=== PATIENT | female | born 1980 | race Hispanic/Latino ===

== ENCOUNTER 2017-10-24 11:11 | Outpatient (CLI) | payer MEDICAID ==
[2017-10-24 12:14] LABS: #Eosinphils 0.3 thou/uL (0.0-0.7); #Lymphocytes 1.8 thou/uL (1.20-3.40); #Monocytes 0.6 thou/uL (0.11-0.59); #Neutrophils 6.6 thou/uL (1.40-6.50); %Basophils 0.5 % (0.0-1.0); %Eosinophils 2.9 % (0.0-10.0); %Lymphocytes 19.1 % (21.0-51.0); %Monocytes 6.5 % (0.0-10.0); Hemoglobin 13.4 g/dL (12.0-16.0); Mean Corpuscular HGB CONC 33.4 g/dL (32.0-36.0); Mean Corpuscular Hemoglobin 29.5 pg (27.0-31.0); Mean Corpuscular Volume 88.3 fL (78.0-98.0); Mean Platelet Volume 6.2 fL (7.4-10.4); Platelet Count 280 thou/uL (130-400); RBC Distribution Width 11.9 % (11.5-14.5); Red Blood Cell (RBC) Count 4.53 mill/uL (4.20-5.40); White Blood Cell (WBC) Count 9.3 thou/uL (4.8-10.8)
[2017-10-24 12:31] LABS: ALT (SGPT) 19 U/L (8-55); AST (SGOT) 16 U/L (5-34); Albumin 3.8 g/dL (3.5-5.0); Alkaline Phosphatase 88 U/L (40-150); Anion Gap 10 mmol/L (10-20); BUN (Urea Nitrogen) 10 mg/dL (7.0-18.7); Bilirubin, Total 0.5 mg/dL (0.2-1.2); Calc. Creatinine Clearance 0 mL/min (70-130); Calcium 9.1 mg/dL (7.8-10.44); Carbon Dioxide 28 mmol/L (22-29); Chloride 104 mmol/L (98-107); Estimated GFR-MDRD Greater than 90; Globulin 3.6 g/dL (2.4-3.5); Glucose 79 mg/dL (70-105); Potassium 3.8 mmol/L (3.5-5.1); Protein, Total 7.4 g/dL (6.0-8.3); Sodium 138 mmol/L (136-145)
== END 2017-10-24 11:12 | disposition home or self-care (01) ==
LOC: LABBT 11:11
PROVIDERS: ATTEND Surgery
DX: Z01.812 Encounter for preprocedural laboratory examination (principal); K80.20 Calculus of gallbladder without cholecystitis without obstruction; K42.9 Umbilical hernia without obstruction or gangrene
CPT/HCPCS: 80053; 85025

== ENCOUNTER 2017-10-25 07:45 | Observation (INO) | payer MEDICAID ==
[2017-10-24 11:33] VITALS: BMI 55.0
--- NOTE | 2017-10-25 10:02 | ULT ---
BILATERAL LOWER EXTREMITY VENOUS DOPPLER ULTRASOUND: Date: 10-25-17 Comparison: None. History: Pre-surgical patient, evaluate for DVT. Technique: Multiplanar grayscale sonographic imaging of the venous structures of the bilateral lower extremities obtained with color flow and spectral analysis. FINDINGS: Bilateral common femoral veins, greater saphenous veins, profunda femoral veins, femoral veins, popli teal veins, and posterior tibial veins are patent. There is normal blood flow, augmentation, and comp ression within the deep venous system bilaterally. No evidence for DVT on either side. IMPRESSION: No evidence for deep venous thrombosis of either lower extremity. POS: [facility]
[2017-10-25] MEDS ORDERED: Fentanyl 250 MCG/5 ML VIAL ONE (11:40)
[2017-10-25] MEDS ORDERED: Lidocaine 2% Jelly 5 ML TUBE ONE (11:40)
[2017-10-25] MEDS ORDERED: Midazolam HCl 2 mg/2 ml Vial ONE ×2 (11:40→11:44)
[2017-10-25] MEDS ORDERED: CEFAZOLIN/Water 2 GM/20 ML SYRINGE ONE (11:44)
[2017-10-25] MEDS ORDERED: Bupivacaine 0.25% HCL 30 ML VIAL ONE (11:49)
[2017-10-25] MEDS ORDERED: Bupivacaine/Epinephrine 0.25% 30 ML VIAL ONE (11:50)
[2017-10-25] MEDS ORDERED: Lidocaine 1% PF 5 ML VIAL ONE (13:22)
[2017-10-25] MEDS ORDERED: PHENYLEPHRINE-NS 100 MCG/ML 10 ML SYRINGE ONE (13:22)
[2017-10-25] MEDS ORDERED: Ondansetron HCl/PF 4 MG/2 ML Vial ONE (13:22)
[2017-10-25] MEDS ORDERED: PROPOFOL 200 MG/20 ML VIAL ONE (13:22)
[2017-10-25] MEDS ORDERED: Glycopyrrolate 0.2 MG/ML 5 ML SYRINGE ONE (13:22)
[2017-10-25] MEDS ORDERED: Succinylcholine Chloride 20 MG/ML 10 ml SYRINGE FS ONE (13:22)
[2017-10-25] MEDS ORDERED: Dexamethasone 20 MG/5 ML VIAL ONE (13:22)
[2017-10-25] MEDS ORDERED: Fentanyl 100 MCG/2 ML VIAL ONE ×2 (14:05→14:56)
[2017-10-25] MEDS ORDERED: Morphine 4 MG/ML VIAL ONE (16:13)
[2017-10-25] MEDS ORDERED: HYDROcodone/Acetaminophen 5/325 mg Tablet ONE ×2 (17:17→17:18)
[2017-10-25] MEDS ORDERED: Ketorolac Tromethamine 30 MG/ML VIAL IVP PRN (18:16)
[2017-10-25] MEDS ORDERED: traMADol HCl 50 MG TAB PO PRN ×2 (18:17→18:18)
[2017-10-25] MEDS: Acetaminophen 1,000 MG in Premix Bag 1 BAG IVPB PRN (19:33)
[2017-10-26] MEDS: Acetaminophen 1,000 MG in Premix Bag 1 BAG IVPB PRN (07:01)
[2017-10-26] MEDS ORDERED: HYDROcodone/Acetaminophen 5/325 mg Tablet PO PRN ×2 (10:24)
[2017-10-26 16:14] VITALS: BP 147/82; TEMP 97.8
--- NOTE | 2017-10-27 10:19 | PDOC.OP ---
Operative Note - Operative Note Operative Note: PROCEDURE: Laparoscopic cholecystectomy and open repair of umbilical hernia with mesh SURGEON: Krystyna Ross M.D. DATE OF PROCEDURE: 10/25/2017 PREOPERATIVE DIAGNOSIS: Cholelithiasis and cholecystitis, umbilical hernia POSTOPERATIVE DIAGNOSIS: Cholelithiasis and cholecystitis, umbilical hernia HISTORY: Patient with newly diagnosed umbilical hernia and long-standing postprandial epigastric and right upper quadrant pain due to recently diagnosed gallstones. Recommendation was made to proceed with laparoscopic cholecystectomy , with umbilical hernia repair under the same anesthesia. FINDINGS: White walled chronically inflamed gallbladder with no evidence of acute infection. 2.5 cm umbilical hernia defect repaired with 8 cm preperitoneal ventralex mesh. PROCEDURE IN DETAIL: After informed consent was obtained and appropriate preoperative antibiotics were administered, the patient was taken to the operating room and placed in the supine position and general endotracheal anesthesia was administered. The stomach was decompressed with an OG tube and the abdomen was prepped and draped in standard sterile fashion. Local anesthesia was infused to the skin and subcutaneous tissues at the umbilical level. A periumbilical skin incision was made and dissection carried down to the umbilical hernia sac which was dissected free of the umbilicus and traced down to the fascia. The hernia sac was empty and was opened and a 12 mm trocar placed into the abdominal cavity. The hernia sac was secured around the trocar and the skin incision on snugged up around the trocar with a towel clip and carbon dioxide gas insufflated into the intra-abdominal cavity without difficulty. Opening pressure was less than 5 and carbon dioxide gas easily insufflated to an intra-abdominal pressure of 15, which the patient tolerated well. The abdominal cavity was carefully examined. There was no evidence of trocar injury. Local anesthesia was infused to the skin and subcutaneous tissues at the epigastric, right upper quadrant, and right lateral abdominal sites and 5 mm trocars were placed under direct vision of the laparoscope. The fundus of the gallbladder was grasped and retracted superiorly. The infundibulum was grasped and retracted laterally. The serosa was stripped inferiorly at the level of the neck of the gallbladder exposing the small cystic duct and the cystic artery, both of which were traced clearly to their insertion in the gallbladder. Critical view of safety was obtained and the cystic duct and artery were clipped and divided between clips. The gallbladder was then dissected free of the gallbladder bed using hook electrocautery. At no time was the gallbladder entered nor was any bile spilled. Prior to complete removal of the gallbladder from the gallbladder bed, the area of the cystic duct and artery stumps was examined. The clips were in good position completely across these structures and there was no bleeding and no leakage of bile. The gallbladder was then placed into an EndoCatch bag and drawn out through the umbilical incision. The umbilical trocar was replaced and the operative site examined and hemostasis again verified. The umbilical trocar was then removed and attention turned to repair of the umbilical hernia. The hernia sac was excised at the level of the fascia and the peritoneum closed with a 3-0 Monocryl suture. A preperitoneal space was created using blunt dissection and an 8 cm ventral ex mesh placed into the preperitoneal space and flattened against the anterior fascia. The fascial defect was then closed with braided permanent suture including the central strap into the fascial closure. The straps were then cut flush with the fascia. The camera was moved to the epigastric position and the repair examined. The mesh was in good position completely covered by peritoneum and expanded appropriately, completely covering the fascial defect. The right upper quadrant and right lateral abdominal trocars were removed and hemostasis verified. Carbon dioxide gas was allowed to desufflate through the epigastric trocar which was then removed. The skin incisions were closed with 4-0 subcuticular Monocryl sutures and Dermabond dressings were placed. The patient was extubated and taken to the recovery room in good condition. There were no complications. ESTIMATED BLOOD LOSS: Minimal. SPECIMEN : Gallbladder and contents. Umbilical hernia sac was discarded.
== END 2017-10-26 17:25 | disposition home or self-care (01) ==
LOC: SDC 07:45 → SURG A 18:58
PROVIDERS: ADMIT Surgery; ATTEND Surgery
PROC: 0FT44ZZ Resection of Gallbladder, Percutaneous Endoscopic Approach (ICD-10-PCS; principal; 2017-10-25)
DX: K80.10 Calculus of gallbladder with chronic cholecystitis without obstruction (principal); K42.9 Umbilical hernia without obstruction or gangrene; E66.9 Obesity, unspecified; I80.9 Phlebitis and thrombophlebitis of unspecified site; Z88.1 Allergy status to other antibiotic agents; Z79.899 Other long term (current) drug therapy; Z88.8 Allergy status to other drugs, medicaments and biological substances; Z68.43 Body mass index [BMI] 50.0-59.9, adult
CPT/HCPCS: 80053; 85025; 88304; 93970; 96374; 96375; 96376; C1781; G0378; J0131; J1100; J2001; J2250; J2270; J2405; J2704; J3010; S0020

== ENCOUNTER 2018-01-17 11:20 | Emergency (ER) | payer MEDICAID, OTHER ==
[2018-01-17] MEDS ORDERED: Ibuprofen 200 MG TAB ONE (13:31)
== END 2018-01-17 13:37 | disposition home or self-care (01) ==
LOC: ERS 11:20
DX: L03.115 Cellulitis of right lower limb (principal); I83.891 Varicose veins of right lower extremity with other complications
CPT/HCPCS: 99283

== ENCOUNTER 2019-06-18 09:39 | Emergency (ER) | payer OTHER | END 2019-06-18 10:45 | disposition home or self-care (01) | LOC: ERS 09:39 | DX: O99.413 Diseases of the circulatory system complicating pregnancy, third trimester (principal); I83.891 Varicose veins of right lower extremity with other complications; L03.115 Cellulitis of right lower limb; O99.713 Diseases of the skin and subcutaneous tissue complicating pregnancy, third trimester; Z87.898 Personal history of other specified conditions; Z3A.32 32 weeks gestation of pregnancy | CPT/HCPCS: 99283 ==

== ENCOUNTER 2021-01-15 19:00 | Outpatient (CLI) | payer OTHER | END 2021-01-15 19:01 | disposition home or self-care (01) | LOC: SLEEPLAB 19:00 | PROVIDERS: ATTEND Family Medicine | DX: G47.33 Obstructive sleep apnea (adult) (pediatric) (principal); G47.61 Periodic limb movement disorder; R53.83 Other fatigue; E66.9 Obesity, unspecified; R06.83 Snoring; I10 Essential (primary) hypertension | CPT/HCPCS: 95810 ==

== ENCOUNTER 2021-01-22 15:04 | Outpatient (CLI) | payer OTHER | END 2021-01-22 15:05 | disposition home or self-care (01) | LOC: DTY/OP 15:04 | PROVIDERS: ATTEND Surgery | DX: E66.01 Morbid (severe) obesity due to excess calories (principal) | CPT/HCPCS: 97802 ==

== ENCOUNTER 2021-10-02 06:56 | Outpatient (CLI) | payer OTHER ==
[2021-10-02 08:57] LABS: #Basophils 0.1 10x3/uL (0.0-0.2); #Eosinphils 0.3 10x3/uL (0.0-0.5); #Monocytes 0.6 10x3/uL (0.0-1.1); #Neutrophils 6.5 10x3/uL (1.5-8.4); %Basophils 0.5 % (0.0-2.0); %Eosinophils 2.8 % (0.0-6.0); %Lymphocytes 19.8 % (18.0-47.0); %Neutrophils 70.6 % (40.0-75.0); Mean Corpuscular HGB CONC 32.3 g/dL (32.0-36.0); Mean Corpuscular Volume 89.8 fl (81.6-98.3); Mean Platelet Volume 9.2 fl (7.4-10.4); Platelet Count 332 10x3/uL (150-450); RBC Distribution Width 13.3 % (11.5-14.5); Red Blood Cell (RBC) Count 4.49 10x6/uL (3.90-5.03); White Blood Cell (WBC) Count 9.3 10x3/uL (3.5-10.5)
[2021-10-02 09:28] LABS: BHCG - Serum Negative (NEGATIVE); Pregs Control Background? CLEAR/WHITE (CLR/WHITE); Pregs Control Bar Appear? YES (CONTROL BAR)
[2021-10-02 09:37] LABS: ALT (SGPT) 27 U/L (8-55); AST (SGOT) 24 U/L (5-34); Albumin 3.9 g/dL (3.5-5.0); Alkaline Phosphatase 74 U/L (40-110); Anion Gap 12 mmol/L (10-20); BUN (Urea Nitrogen) 12 mg/dL (7.0-18.7); Bilirubin, Total 0.4 mg/dL (0.2-1.2); Calc. Creatinine Clearance 0 mL/min (70-130); Carbon Dioxide 26 mmol/L (22-29); Chloride 106 mmol/L (98-107); Globulin 3.4 g/dL (2.4-3.5); Glucose 80 mg/dL (70-105); Potassium 4.1 mmol/L (3.5-5.1); Protein, Total 7.3 g/dL (6.0-8.3); Sodium 140 mmol/L (136-145)
[2021-10-02 14:16] LABS: Hemoglobin A1c 5.3 % (4.0-6.0)
== END 2021-10-02 06:57 | disposition home or self-care (01) ==
LOC: LABBT 06:56
PROVIDERS: ATTEND Surgery
DX: Z01.812 Encounter for preprocedural laboratory examination (principal); E66.01 Morbid (severe) obesity due to excess calories; Z20.822 Contact with and (suspected) exposure to COVID-19
CPT/HCPCS: 80053; 83036; 84703; 85025; U0003; U0005

== ENCOUNTER 2021-10-02 07:15 | Inpatient (IN) | payer OTHER ==
[2021-10-02 12:29] VITALS: BMI 54.9
[2021-10-06] MEDS ORDERED: fentaNYL Citrate/PF 100 MCG/2 ML SYRINGE ONE ×2 (07:19→09:59)
[2021-10-06] MEDS ORDERED: HYDROmorphone 0.5 MG/0.5 ML SYRINGE ONE (07:19)
[2021-10-06] MEDS ORDERED: SUGAMMADEX SODIUM 200 MG/2 ML VIAL ONE (07:19)
[2021-10-06] MEDS ORDERED: Bupivacaine 0.25% HCL 30 ML VIAL ONE (07:32)
[2021-10-06] MEDS ORDERED: Lidocaine 1% w/Epinephrine 1:100K 20 ML VIAL ONE (07:32)
[2021-10-06] MEDS ORDERED: Sodium Chloride 0.9% 100 ML ONE (07:36)
[2021-10-06] MEDS ORDERED: CEFAZOLIN 2 GM VIAL ONE (07:36)
[2021-10-06] MEDS ORDERED: Heparin 5,000 UNITS/ML VIAL ONE (07:36)
[2021-10-06] MEDS ORDERED: PROPOFOL 200 MG/20 ML VIAL ONE (07:51)
[2021-10-06] MEDS ORDERED: Rocuronium Bromide 10 MG/ML (10ML VIAL) ONE (07:51)
[2021-10-06] MEDS ORDERED: Dexamethasone 20 MG/5 ML VIAL ONE (07:51)
[2021-10-06] MEDS ORDERED: Ondansetron PF 4 MG/2 ML Vial ONE (07:51)
[2021-10-06] MEDS ORDERED: Ketorolac Tromethamine 30 MG/ML VIAL ONE (07:51)
[2021-10-06] MEDS ORDERED: Lidocaine 1% PF 5 ML VIAL ONE (07:51)
[2021-10-06] MEDS ORDERED: Glycopyrrolate 0.2 MG/ML 5 ML SYRINGE ONE (07:51)
[2021-10-06] MEDS ORDERED: Promethazine HCl 25 MG/ML VIAL IM PRN ×2 (08:44→09:31)
[2021-10-06] MEDS ORDERED: HYDROmorphone 2 MG/ML VIAL SLOW IVP PRN (08:44)
[2021-10-06] MEDS ORDERED: Promethazine HCl 25 MG/ML VIAL IVPB PRN (08:44)
[2021-10-06] MEDS ORDERED: Meperidine HCl/PF 25 MG/ML VIAL SLOW IVP PRN (08:44)
[2021-10-06] MEDS ORDERED: Ondansetron HCl/PF 4 MG/2 ML Vial IVP PRN (08:44)
[2021-10-06] MEDS ORDERED: Dextrose 5% in Water 1,000 ML IV PRN (09:31)
[2021-10-06] MEDS ORDERED: Morphine 4 MG/ML VIAL SLOW IVP PRN (09:31)
[2021-10-06] MEDS ORDERED: Ondansetron PF 4 MG/2 ML Vial IVP PRN (09:31)
[2021-10-06] MEDS ORDERED: Hydrocodone-Acetamin 15 ML UDCUP PO PRN (09:31)
[2021-10-06] MEDS ORDERED: diphenhydrAMINE 50 MG/ML VIAL IVP PRN (09:31)
[2021-10-06] MEDS ORDERED: hydrALAZINE 20 MG/ML VIAL SLOW IVP PRN ×2 (09:31→09:52)
[2021-10-06] MEDS ORDERED: Dextrose 50% Abboject 50 ML SYRINGE SLOW IVP PRN (09:31)
[2021-10-06] MEDS ORDERED: Morphine 2 MG/ML VIAL SLOW IVP PRN (09:31)
[2021-10-06] MEDS ORDERED: ceFAZolin 2 GM/Dextrose 50 ML 2 GM in Premix Bag 1 BAG IVPB SCH (09:45)
[2021-10-06] MEDS ORDERED: Labetalol HCl 100 MG/20 ML VIAL SLOW IVP PRN (09:52)
[2021-10-06] MEDS ORDERED: hydrALAZINE 20 MG/ML VIAL ONE (09:56)
[2021-10-06] MEDS ORDERED: Promethazine HCl 25 MG/ML VIAL ONE (10:25)
[2021-10-06] MEDS: D5 1/2 NS w/20 mEq KCL 1,000 ML IV SCH ×2 (11:35→20:47)
[2021-10-06] MEDS: CEFAZOLIN 2 GM in Sodium Chloride 0.9% 100 ML IVPB SCH ×2 (13:35→20:46)
[2021-10-06] MEDS: Ketorolac Tromethamine 30 MG/ML VIAL IVP SCH ×2 (13:35→18:30)
[2021-10-07] MEDS: Ketorolac Tromethamine 30 MG/ML VIAL IVP SCH ×3 (00:02→12:33)
[2021-10-07] MEDS: D5 1/2 NS w/20 mEq KCL 1,000 ML IV SCH ×2 (05:54→08:02)
[2021-10-07 06:07] LABS: Anion Gap 11 mmol/L (10-20); BUN (Urea Nitrogen) 6 mg/dL (7.0-18.7); Calc. Creatinine Clearance 284 mL/min (70-130); Calcium 8.5 mg/dL (7.8-10.44); Carbon Dioxide 26 mmol/L (22-29); Chloride 104 mmol/L (98-107); Glucose 95 mg/dL (70-105); Potassium 3.5 mmol/L (3.5-5.1); Sodium 137 mmol/L (136-145)
[2021-10-07 06:19] LABS: #Lymphocytes 1.8 thou/uL (1.20-3.40); #Monocytes 0.9 thou/uL (0.11-0.59); #Neutrophils 10.7 thou/uL (1.40-6.50); %Basophils 0.1 % (0.0-1.0); %Eosinophils 0.2 % (0.0-10.0); %Lymphocytes 13.6 % (21.0-51.0); %Monocytes 6.5 % (0.0-10.0); %Neutrophils 79.6 % (42.0-75.0); Hemoglobin 12.5 g/dL (12.0-16.0); Mean Corpuscular HGB CONC 33.1 g/dL (32.0-36.0); Mean Corpuscular Hemoglobin 29.7 pg (27.0-31.0); Mean Corpuscular Volume 89.7 fL (78.0-98.0); Mean Platelet Volume 5.9 fL (7.4-10.4); Platelet Count 356 thou/uL (130-400); RBC Distribution Width 12.6 % (11.5-14.5); White Blood Cell (WBC) Count 13.4 thou/uL (4.8-10.8)
[2021-10-07] MEDS ORDERED: Enoxaparin Sodium 40 MG/0.4 ML SYRINGE SC SCH (09:00)
[2021-10-07] MEDS ORDERED: Pantoprazole 40 MG VIAL IVP SCH (09:00)
[2021-10-07 16:35] VITALS: BP 155/86; TEMP 98
== END 2021-10-07 17:20 | disposition home or self-care (01) | DRG 621 ==
LOC: SURG A 10-06 07:00
PROVIDERS: ADMIT Surgery; ATTEND Surgery
PROC: 0DB64Z3 Excision of Stomach, Percutaneous Endoscopic Approach, Vertical (ICD-10-PCS; principal; 2021-10-06)
PROC: 8E0W3CZ Robotic Assisted Procedure of Trunk Region, Percutaneous Approach (ICD-10-PCS; 2021-10-06)
DX: E66.01 Morbid (severe) obesity due to excess calories (principal); Z20.822 Contact with and (suspected) exposure to COVID-19; I10 Essential (primary) hypertension; J30.2 Other seasonal allergic rhinitis; Z68.43 Body mass index [BMI] 50.0-59.9, adult; Z88.8 Allergy status to other drugs, medicaments and biological substances; Z79.899 Other long term (current) drug therapy
CPT/HCPCS: 36415; 80048; 85025; 88307; C9113; J0360; J1100; J1170; J1644; J1650; J1885; J2270; J2405; J2550; J2704; J3480; J3490; S0020

== ENCOUNTER 2021-10-12 11:22 | Day surgery (SDC) | payer OTHER ==
[2021-10-12] MEDS ORDERED: Ondansetron PF 4 MG/2 ML Vial IVP PRN (11:36)
[2021-10-12] MEDS ORDERED: Sodium Chloride 0.9% 1,000 ML IV SCH (11:45)
[2021-10-12] MEDS ORDERED: Multivitamins, Adult 10 ML, Thiamine HCl 100 MG in Sodium Chloride 0.9% 1,000 ML IV SCH (11:45)
[2021-10-12 12:25] VITALS: BP 131/69; TEMP 98.5
== END 2021-10-12 15:31 | disposition home or self-care (01) ==
LOC: ONC/OP 11:22
PROVIDERS: ATTEND Surgery
DX: E86.0 Dehydration (principal); Z88.1 Allergy status to other antibiotic agents; Z88.2 Allergy status to sulfonamides; Z88.8 Allergy status to other drugs, medicaments and biological substances
CPT/HCPCS: 96361; 96365; J3411; J7050

== ENCOUNTER 2021-10-19 15:28 | Day surgery (SDC) | payer OTHER ==
[2021-10-19] MEDS ORDERED: Ondansetron PF 4 MG/2 ML Vial IVP PRN (15:50)
[2021-10-19] MEDS ORDERED: Sodium Chloride 0.9% 1,000 ML IV SCH ×2 (16:00)
[2021-10-19] MEDS ORDERED: Multivitamins, Adult 10 ML, Thiamine HCl 100 MG in Sodium Chloride 0.9% 1,000 ML IV SCH (16:00)
== END 2021-10-19 18:13 | disposition home or self-care (01) ==
LOC: ONC/OP 15:28
PROVIDERS: ATTEND Surgery
DX: E86.0 Dehydration (principal); Z88.1 Allergy status to other antibiotic agents; Z88.2 Allergy status to sulfonamides; Z88.5 Allergy status to narcotic agent
CPT/HCPCS: 96361; 96365; 96366; J3411; J7050